=== PATIENT | female | born 1990 | race Hispanic/Latino ===

== ENCOUNTER 2023-03-18 01:21 | Observation (INO) | payer BC ==
[2023-03-18 02:32] VITALS: BMI 37.3
[2023-03-18] MEDS ORDERED: Ondansetron PF 4 MG/2 ML Vial IVP PRN (02:49)
[2023-03-18] MEDS ORDERED: Morphine 2 MG/ML VIAL SLOW IVP PRN (02:49)
[2023-03-18] MEDS ORDERED: traMADol HCl 50 MG TAB PO PRN (03:03)
[2023-03-18] MEDS: traMADol HCl 50 MG TAB PO SCH ×2 (05:01→11:56)
[2023-03-18] MEDS: Piperacillin/Tazobactam 3.375 GM in Sodium Chloride 0.9% 100 ML IVPB SCH ×2 (05:01→11:55)
[2023-03-18] MEDS: Acetaminophen 325 MG TAB PO SCH ×2 (05:02→11:55)
[2023-03-18] MEDS: Sodium Chloride 0.9% 1,000 ML IV SCH ×2 (05:13→11:55)
[2023-03-18 06:34] LABS: #Monocytes 0.4 thou/uL (0.11-0.59); #Neutrophils 6.3 thou/uL (1.40-6.50); %Basophils 0.2 % (0.0-1.0); %Eosinophils 0.1 % (0.0-10.0); %Lymphocytes 25.9 % (21.0-51.0); %Monocytes 4.3 % (0.0-10.0); %Neutrophils 69.3 % (42.0-75.0); Hematocrit 36.4 % (36.0-47.0); Hemoglobin 12.4 g/dL (12.0-16.0); Mean Corpuscular HGB CONC 34.1 g/dL (32.0-36.0); Mean Corpuscular Hemoglobin 30.3 pg (27.0-31.0); Mean Platelet Volume 10.3 fL (7.4-10.4); Platelet Count 244 10x3/uL (130-400); RBC Distribution Width 11.9 % (11.5-14.5); Red Blood Cell (RBC) Count 4.09 mill/uL (4.20-5.40); White Blood Cell (WBC) Count 9.1 10x3/uL (4.8-10.8)
[2023-03-18 06:43] LABS: Prothrombin Time 13.7 sec (12.0-14.7)
[2023-03-18 06:44] LABS: PTT 28.4 sec (22.9-36.1)
[2023-03-18 07:36] LABS: Anion Gap 12 mmol/L (10-20); BUN (Urea Nitrogen) 7 mg/dL (7.0-18.7); Calc. Creatinine Clearance 190 mL/min (70-130); Carbon Dioxide 25 mmol/L (22-29); Chloride 107 mmol/L (98-107); Estimated GFR 119; Glucose 106 mg/dL (70-105); Potassium 3.6 mmol/L (3.5-5.1); Sodium 140 mmol/L (136-145)
[2023-03-18] MEDS ORDERED: Midazolam HCl 2 mg/2 ml Vial ONE (10:32)
[2023-03-18] MEDS ORDERED: Bupivacaine PF 0.5% 30 ML VIAL ONE (10:40)
[2023-03-18] MEDS ORDERED: EPINEPHrine 1 MG/ML AMP ONE (10:40)
[2023-03-18] MEDS ORDERED: Bupivacaine 0.25% HCL 30 ML VIAL ONE (10:40)
[2023-03-18] MEDS ORDERED: fentaNYL 50 mcg/mL 1 mL Vial ONE (10:41)
[2023-03-18] MEDS ORDERED: Famotidine/PF 20 mg/2ml Vial ONE (10:42)
[2023-03-18] MEDS ORDERED: SUGAMMADEX SODIUM 200 MG/2 ML VIAL ONE (10:42)
[2023-03-18] MEDS ORDERED: Procainamide 500 MG/ML VIAL ONE (10:59)
[2023-03-18] MEDS ORDERED: Succinylcholine 200 MG/10 ml SYRINGE FS ONE (11:00)
[2023-03-18] MEDS ORDERED: Ondansetron PF 4 MG/2 ML Vial ONE (11:00)
[2023-03-18] MEDS ORDERED: Dexamethasone 20 MG/5 ML VIAL ONE (11:00)
[2023-03-18] MEDS ORDERED: Ketorolac Tromethamine 30 MG/ML VIAL ONE (11:00)
[2023-03-18] MEDS ORDERED: Lidocaine 1% PF 5 ML VIAL ONE (11:00)
[2023-03-18] MEDS ORDERED: Metoclopramide HCl 10 MG/2 ML VIAL ONE (11:00)
[2023-03-18] MEDS ORDERED: Rocuronium Bromide 10 MG/ML (10ML VIAL) ONE (11:00)
[2023-03-18] MEDS ORDERED: PROPOFOL 200 MG/20 ML VIAL ONE (11:00)
[2023-03-18] MEDS ORDERED: Ibuprofen 200 MG TAB PO PRN (12:05)
[2023-03-18] MEDS ORDERED: Promethazine HCl 25 MG/ML VIAL IM PRN (12:16)
[2023-03-18] MEDS ORDERED: Ondansetron HCl/PF 4 MG/2 ML Vial IVP PRN (12:16)
[2023-03-18] MEDS ORDERED: Meperidine HCl/PF 25 MG/ML VIAL SLOW IVP PRN (12:16)
[2023-03-18 12:55] VITALS: BP 122/83; TEMP 97.6
== END 2023-03-18 16:00 | disposition home or self-care (01) ==
LOC: SURG A 02:22
PROVIDERS: ADMIT Surgery; ATTEND Surgery
PROC: 0DTJ4ZZ Resection of Appendix, Percutaneous Endoscopic Approach (ICD-10-PCS; principal; 2023-03-18)
DX: K35.30 Acute appendicitis with localized peritonitis, without perforation or gangrene (principal); Z98.890 Other specified postprocedural states
CPT/HCPCS: 36415; 80048; 85025; 85610; 85730; 86850; 86900; 86901; 88304; 93005; 93010; 96374; G0378; J0171; J1100; J1885; J2250; J2405; J2543; J2690; J2704; J2765; J3010; J3490; S0020; S0028